=== PATIENT | female | born 2005 | race Caucasian/White ===

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

== ENCOUNTER 2025-01-06 14:22 | Outpatient (AMB) | payer BC, SELFPAY ==
--- NOTE | 2025-01-06 14:28 | MHC.OFFVIS ---
Vital Signs 01/06/25 14:29 Height 5 ft 2 in Weight 201 lb BMI 36.8 BP 108/68 Blood Pressure Location Lt brachial Position Sitting Pulse 83 Pulse Source Pulse Oximeter Pulse Oximetry (%) 96 Oxygen Delivery Method Room Air Intake Visit Reasons: Asthma Lockstitch Tunnel Elastic Operator Required: No Digital Strategy Director: Digital Strategy Director offered & declined Accompanied by: Self / Same As Patient Allergies amoxicillin Adverse Reaction (Unknown, Verified 01/06/25 14:32) Unknown Medication List - Last Reconciled 01/06/25 by Alisson Manzo LPN albuterol sulfate 90 mcg/actuation 2 puffs inhalation Q4-6H PRN 30 days clonazepam mg PO PRN escitalopram oxalate (Lexapro) 10 mg PO DAILY ipratropium-albuterol 20-100 mcg/actuation (Combivent Respimat) 1 puff inhalation QID lumateperone (Caplyta) 42 mg PO DAILY trazodone 25 mg PO DAILY HPI HPI Asthma: Details: Lizzie is pleasant 19 year old female, never smoker, with underlying asthma. She was referred by PCP for pulmonary evaluation for worsening respiratory symptoms since after COVID in 2020. She reports persistent dry cough, wheezing, dyspnea, frequent nighttime awakenings and chest tightness, requiring albuterol MDI frequently over the last few months. She does note that her symptoms tend to be worse when she is at home, reports two cats at home as well as carpeting. She reports seasonal allergies, no recent allergy testing. She reports asthma dx recently, previously with reactive airway symptoms secondary to URI. Denies prior need for intubation/hospitalizations related to respiratory distress. 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 She denies any pertinent family history. She denies second hand smoke exposure. She denies h/o recurrent respiratory symptoms. 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 Current occupational exposures/hazards: No Cognitive needs: No Hearing needs: No Vision needs: Yes Review of Systems Const Denies chills, Denies excessive sweating, Denies fever(s), Denies headache(s) and Denies night sweats Eyes Denies dry eyes, Denies irritation and Denies itchy eyes ENT Reports Normal hearing present, Denies headache(s), Denies nasal congestion, Denies nasal discharge, Denies post nasal drip and Denies sore throat Card Denies chest pain, Denies chest pain at rest, Denies chest pain with activity, Denies claudication, Denies leg edema and Denies orthopnea Resp Denies chest congestion, Denies excessive phlegm production, Denies pain on inspiration, Denies pain with cough and Denies stridor Musc Denies myalgias Neuro Reports Normal hearing present and Denies headache(s) Endo Denies excessive sweating Baljinder/Lymph Denies lymphadenopathy Aller/Immun Denies itchy eyes and Denies seasonal rhinorrhea Physical Exam Vital Signs: Last Vital Signs Pulse 83 01/06/25 14:29 BP 108/68 01/06/25 14:29 Pulse Ox 96 01/06/25 14:29 Oxygen Delivery Method Room Air 01/06/25 14:29 BMI result Body Mass Index 36.8 Const General: cooperative, healthy appearing, comfortable, no acute distress, well developed and alert Nutritional Appearance: obese Orientation/consciousness: patient oriented x3 Limitations: no limitations HEENT Head: Yes normal to inspection, Yes normocephalic and Yes atraumatic Ears: hearing grossly normal bilaterally and external ears normal Eyes General: appearance normal, both eyes and all related structures Eyelids: Yes eyelids normal Sclerae: sclerae normal EOM: EOMs intact bilaterally Neck Neck: Yes normal visual inspection and Yes no lymphadenopathy Lymphatic: no lymphadenopathy noted Chest Chest palpation & inspection: normal inspection of the chest Resp Effort & Inspection: normal respiratory effort, able to speak in complete sentences, no audible wheezes, Actively coughing Quality: dry, no stridor, not tachypneic, no tripod positioning and no use of accessory muscles Auscultation: diminished lung sounds Cardio Jugular venous distension: no JVD Rate: regular rate Rhythm: regular rhythm Skin Other: warm, dry General skin exam: no rashes or lesions noted Neuro General: patient oriented x3 Cranial nerves: Yes Normal hearing present Cognition (Neuro): normal cognition Gait exam (Neuro): Normal gait present Extrem General: Yes normal to inspection, Yes capillary refill normal, Yes no clubbing, cyanosis or edema and Yes no pedal edema Psych Appearance: grossly normal and well kempt Speech and movement: Normal speech and movement present and Clear speech present Affect: normal affect Attitude: cooperative Thought process: Normal thought process present Thought content: Normal thought content present Insight: Good insight present (Psych) Judgement: Good judgement present (Psych) Assessment & Plan Assessment & Plan (1) Asthma: Code(s): J45.909 - Unspecified asthma, uncomplicated Category: Medical (2) Environmental allergies: Code(s): Z91.09 - Other allergy status, other than to drugs and biological substances Category: Medical Plan Alexmerry's symptoms are likely related to poorly controlled asthma. Will empirically start Breo. Discussed importance of good oral hygiene to prevent thrush. Will send for PFT to assess severity of obstructive defect. Will send for RAST to assess for an allergic component. All questions were answered and patient is in agreement of plan. Will follow up in 6-8 weeks or sooner if needed. Orders: Orders Resp Allergy Profile Region I 01/06/25 Z91.09 - Other allergy status, other than to drugs and biological substances Complete Blood Count Auto Diff 01/06/25 Z91.09 - Other allergy status, other than to drugs and biological substances Immunoglobulin E 01/06/25 Z91.09 - Other allergy status, other than to drugs and biological substances PFT pulmonary function test Today J45.909 - Unspecified asthma, uncomplicated Medications: New fluticasone furoate-vilanterol 100-25 mcg/dose (Breo Ellipta) 1 inh inhalation DAILY 60 ea 3RF Coding Level of Care Code New Pt Level 4 (21220) Diagnoses Asthma J45.909 Environmental allergies Z91.09
[2025-01-06 14:29] VITALS: BP 108/68; PULSE 83; O2SAT 96; BMI 36.8
== END 2025-01-06 14:57 | disposition home or self-care (01) ==
LOC: HO.HPSW 14:23
PROVIDERS: PCP Nurse Practitioner Family; Referring Provider Nurse Practitioner Family; Visit Provider Nurse Practitioner Family
DX: J45.909 Unspecified asthma, uncomplicated (principal); Z91.09 Other allergy status, other than to drugs and biological substances
CPT/HCPCS: 99204

== ENCOUNTER → 2025-01-06 14:22 | Outpatient (BNVA) | payer BC, SELFPAY | PROVIDERS: PCP Nurse Practitioner Family; Referring Provider Nurse Practitioner Family; Visit Provider Nurse Practitioner Family ==

== ENCOUNTER 2025-01-06 15:01 | Outpatient (REF) | payer BC, SELFPAY ==
[2025-01-06 18:00] LABS: MANUAL DIFF FLAG NO
[2025-01-06 18:04] LABS: Basophils Absolute Auto 0.2 X10*3/uL (0.0-0.2); Basophils Percent Auto 1.7 % (0-2); Hemoglobin 14.2 g/dl (12.0-16.0); Imm Gran Abs Auto 0.03 X10*3/uL (0.00-0.03); Imm Gran Pct Auto 0.3 % (0.0-0.4); Lymphocytes Absolute Auto 2.5 X10*3/uL (1.2-4.9); Mean Corpuscular HGB Conc 33.8 g/dl (31.0-35.0); Mean Corpuscular Hemoglobin 29.5 pg (27.0-33.0); Mean Corpuscular Volume 87.3 fL (80.0-98.0); Mean Platelet Volume 9.3 fL (9.4-12.3); Monocytes Absolute Auto 0.8 X10*3/uL (0.1-1.2); Monocytes Percent Auto 8.7 % (2-11); Neutrophils Absolute Auto 5.1 x10*3/uL (2.0-8.3); Neutrophils Percent Auto 53.3 % (45-73); Platelet Count 444 X10*3/uL (160-400); Red Blood Count 4.81 X10*6/uL (4.20-5.50); Red Cell Distribution Width 12.6 % (11.0-16.0); White Blood Count 9.5 X10*3/uL (4.8-10.8)
[2025-01-17 16:13] LABS: Class Alternaria alternata 0; Class Aspergillus fumigatus 0; Class Bermuda Grass 0; Class Birch 0; Class Cat Dander 6; Class Cladosporium herbarum 0; Class Cockroach 0/1; Class Common Ragweed 0; Class Cottonwood 0; Class Derm. pterony 2; Class Dermatophagoides farinae 2; Class Dog Dander 4; Class Elm 0; Class Maple Box Elder 0; Class Mountain Cedar 0; Class Mouse Urine Protein 0; Class Mugwort 0; Class Oak 0; Class Penicillium crysogenum 0; Class Rough Pigweed 0; Class Sheep Sorrel 0; Class Sycamore 0; Class Timothy Grass 0; Class Walnut Tree 0; Class White Ash 0; Class White Mulberry 0; D001 IgE D pteronyssinus 1.02 kU/L; D002 - IgE D farinae 0.71 kU/L; E001 - IgE Cat Dander >100 kU/L; E072-IgE Mouse Urine <0.10 kU/L; G002 IgE Bermuda Grass <0.10 kU/L; G006 - IgE Timothy Grass <0.10 kU/L; I006-IgE Cockroach, German 0.22 kU/L; Immunoglobulin E 504 kU/L (<OR=114); M001 IgE Penicillium chrysogen <0.10 kU/L; M002 - IgE Cladosporium herbar <0.10 kU/L; M003 - IgE Aspergillus fumigat <0.10 kU/L; M006 - IgE Alternaria alternat <0.10 kU/L; T001 IgE Maple/Box Elder <0.10 kU/L; T003 IgE Common Silver Birch <0.10 kU/L; T006 - IgE Cedar, Mountain <0.10 kU/L; T007 - IgE Oak, White <0.10 kU/L; T008 IgE Elm, American <0.10 kU/L; T010 - IgE Walnut <0.10 kU/L; T011 - IgE Maple Leaf Sycamore <0.10 kU/L; T014 - IgE Cottonwood <0.10 kU/L; T015 - IgE Ash, White <0.10 kU/L; T070 - IgE White Mulberry <0.10 kU/L; W001 - IgE Ragweed, Short <0.10 kU/L; W006 - IgE Mugwort <0.10 kU/L; W014 IgE Pigweed, Common <0.10 kU/L; W018 IgE Sheep Sorrel <0.10 kU/L
== END 2025-01-06 15:02 | disposition home or self-care (01) ==
LOC: HO.WFDLDS 15:01
PROVIDERS: Visit Provider Nurse Practitioner Family
DX: Z91.09 Other allergy status, other than to drugs and biological substances (principal)
CPT/HCPCS: 36415; 82785; 85025; 86003

== ENCOUNTER 2025-01-25 07:53 | Outpatient (REF) | payer BC, SELFPAY ==
--- OUTSIDE RECORDS SUMMARY | 2025-01-25 07:58 | XMS_ITS | Clinical Summary ---
Author Organization [facility] Address [address] [place] [address] Care Team Providers Care Ball Worker Name Role Phone Elda Dai Primary Care Provider [phone] Allergies No known active allergies Medications clindamycin-benzoyl [...] EDT Growth Chart: [facility] (Girls, 2- 20 Years) Plan of Treatment Health Maintenance Due Date Last Done Comments HIV Screening 2005 1 Week WC [address] [facility] [address] [facility] [address] [facility] [address] [facility] [address] [facility] 03/04/[address] [facility] 06/14/[address] [facility] 08/31/[address] [facility] 11/29/[address] [facility] 05/28/[address] [facility] 10/01/[address] [facility] 2008 Well Child Check 2008 DTaP,Tdap,and Td Vaccines (2 - Td or Tdap) 03/19/2017 02/19/2017 HPV Vaccines (2 - 2-dose series) 08/22/2017 02/19/2017 MMR Vaccines (1 of 1 - Standard series) 08/21/2020 Varicella Vaccines (1 of 2 - 13+ 2-dose series) 08/21/2020 COVID-19 Vaccine ( - 2023-2 5 season) 2024 Hepatitis B Vaccines (1 of 3 - 19+ 3-dose series) 2024 Influenza Vaccine (Season Ended) 2025 07/24/2020, 06/28/2019, 11/01/2015 RSV Vaccine (60+ years old a nd patients) (1 - 1-dose 75+ series) 2080 Meningococcal Vaccine Aged Out 02/19/2017 No ivette seth eligible based on patient's age to complete this topic Pneumococcal Vaccine: Pediatric (0-5 Years) and At-Risk Patients (6-50 Years) Aged Out No longer eligible based on patient's age to complete this topic Insurance [employer] HMO/POS Member Subscriber Plan / Payer (Ef fective 2010-Present) Name:JustoLizzie garcia Relation to Subscriber:Child Name:VIVIEN KEMP Date of :1981 Address: [address] [place] [id number] Payer ID:[id number] (NA) Type:Not on file Address: [employer] [id number] [facility] Xtract HMO/POS Member Subscriber Plan / Payer (Ef fective 2010-Present) Name:[place] [employer] Relation to Subscriber:Child Name:VIVIEN KEMP Date of :1981 Address: [place] [address] Payer ID:[id number] (NA) Type:Not on file Address: [address] [employer] [id number] [place] [address] Care Teams Ball Worker Relationship Specialty Start Date End Date Elda Dai [address] [place] [address] PCP - General Pediatrics 05/04/20
--- OUTSIDE RECORDS SUMMARY | 2025-01-25 07:58 | XMS_ITS | Referral Summary ---
Author Organization [facility] Address [address] [place] [address] Care Team Providers Care Blasting Coal Miner Name Role Phone Elda Dai Primary Care Provider [phone] Allergies No known active allergies Medications clindamycin-benzoyl [...] 01/30/2021 4:1 1 PM EDT Growth Chart: [facility] (Girls, 2- 20 Years) Plan of Treatment Not on file Insurance CINTHYA Oh [employer] HMO/POS * Guarantor: JUSTOVIVIEN Account Type Relation to Patient Date of Phone Billing Address Personal/[place] [phone] [employer] HMO/POS Care Teams Blasting Coal Miner Relationship Specialty Start Date End Date Elda Dai [address] [place] [phone] PCP - General Pediatrics 05/04/20
== END 2025-01-25 07:54 | disposition home or self-care (01) ==
LOC: HO.HOSX 07:53
DX: Z13.89 Encounter for screening for other disorder (principal)

== ENCOUNTER 2025-02-22 12:49 | Outpatient (REF) | payer BC, SELFPAY ==
--- NOTE | 2025-02-22 12:58 | PFT_ITS ---
Spirometry [] Lung Volumes [] Diffusion Capacity [] Methacholine Challenge [] Flow Volume Loops [] MVV [] MIP/MEP(Max inspiratory pressure/Max expiratory pressure) [] 6 Minute Walk Test [] ABG [] Interpretation [] MTDD
--- OUTSIDE RECORDS SUMMARY | 2025-02-22 13:09 | XMS_ITS | Clinical Summary ---
Author Organization [facility] Address [address] [place] [address] Care Team Providers Care Hardwood Faller Name Role Phone Elda Dai Primary Care Provider [phone] Allergies No known active allergies Medications clindamycin-benzoyl [...] 4:1 1 PM EDT Growth Chart: [facility] (Girls, 2- 20 Years) Plan of Treatment Health Maintenance Due Date Last Done Comments HIV Screening 2005 1 Week WC 2005 1 Month [facility] 2005 2 Month [facility] 2005 4 Month [facility] 2005 6 Month [facility] 2005 9 Month [facility] 03/04/2006 12 Month [facility] 06/14/2006 15 Month [facility] 08/31/2006 18 Month [facility] 11/29/2006 24 Month [facility] 05/28/2007 30 Month [facility] 10/01/2007 3 to 21 Year [facility] 2008 Well Child Check 2008 DTaP,Tdap,and [...] patient's age to complete this topic Insurance [employer] HMO/POS Member Subscriber Plan / Payer (Ef fective 2010-Present) Name:OldsLizzie garcia Relation to Subscriber:Child Name:VIVIEN KEMP Date of :1981 Address: [address] [place] [id number] Payer ID:[id number] (NA) Type:Not on file Address: [employer] [id number] [facility] [employer]! HMO/POS Care Teams Hardwood Faller Relationship Specialty Start Date End Date Elda Dai [address] [place] [address] PCP - General Pediatrics 05/04/20
--- OUTSIDE RECORDS SUMMARY | 2025-02-22 13:09 | XMS_ITS | Referral Summary ---
Author Organization [facility] Address [address] [place] [address] Care Team Providers Care Automotive Service Consultant Name Role Phone Elda Dai Primary Care Provider [phone] Allergies No known active allergies Medications clindamycin-benzoyl [...] 01/30/2021 4:1 1 PM EDT Growth Chart: [facility] (Girls, 2- 20 Years) Plan of Treatment Not on file Insurance CINTHYA Oh [employer] HMO/POS * Guarantor: JUSTOVIVIEN Account Type Relation to Patient Date of Phone Billing Address Personal/[place] [address] [employer] HMO/POS Care Teams Automotive Service Consultant Relationship Specialty Start Date End Date Elda Dai [address] [place] [id number] PCP - General Pediatrics 05/04/20
[2025-02-22 13:30] VITALS: PULSE 85; O2SAT 98
== END 2025-02-22 12:50 | disposition home or self-care (01) ==
LOC: HO.RESP 12:49
PROVIDERS: PCP Nurse Practitioner Family; Visit Provider Nurse Practitioner Family
DX: J45.909 Unspecified asthma, uncomplicated (principal)
CPT/HCPCS: 94010; 94640; 94727; 94729

== ENCOUNTER → 2025-02-22 12:58 | Outpatient (BNV) | payer BC, SELFPAY | PROVIDERS: PCP Nurse Practitioner Family; Visit Provider Internal Medicine Pulmonary Disease | DX: J45.909 Unspecified asthma, uncomplicated (principal) | CPT/HCPCS: 94060; 94727; 94729 ==

== ENCOUNTER 2025-06-20 14:40 | Outpatient (REF) | payer BC, SELFPAY ==
[2025-06-20 18:37] LABS: Hematocrit 39.8 % (37.0-47.0); Hemoglobin 13.5 g/dl (12.0-16.0); Mean Corpuscular HGB Conc 33.9 g/dl (31.0-35.0); Mean Corpuscular Hemoglobin 29.3 pg (27.0-33.0); Mean Corpuscular Volume 86.5 fL (80.0-98.0); NRBC Abs Auto 0.000 X10*3/uL (0.0-0.012); NRBC Pct Auto 0.0 /100WBC (0.0-0.2); Platelet Count 383 X10*3/uL (160-400); Red Blood Count 4.60 X10*6/uL (4.20-5.50); White Blood Count 9.2 X10*3/uL (4.8-10.8)
[2025-06-20 19:02] LABS: Alanine Aminotransferase 27 U/L (0-31); Albumin Level 4.6 g/dL (3.5-5.0); Alkaline Phosphatase 56 U/L (39-117); Anion Gap 11 (12-20); Aspartate Amino Transferase 26 U/L (5-31); Blood Urea Nitrogen 10 mg/dL (9-16); Calcium 9.1 mg/dL (8.4-10.2); Carbon Dioxide 22 mmol/L (22-29); Chloride 112 mmol/L (96-108); Cholesterol 207 mg/dL (<200); Estimated Glomerular Filt Rate > 60; HDL Cholesterol 43 mg/dL (>40); Iron 49 mcg/dL (30-160); Percent Iron Saturation 15 % (15-50); Potassium 3.8 mmol/L (3.3-5.1); Sodium 141 mmol/L (135-145); Total Iron Binding Capacity 326 mcg/dL (228-428); Total Protein 7.3 g/dL (6.5-8.0); Triglycerides 263 mg/dL (<150); Unsaturated Iron Binding 277 ug/dL
[2025-06-20 19:10] LABS: Ferritin 34 ng/mL (10-122)
== END 2025-06-20 14:41 | disposition home or self-care (01) ==
LOC: HO.WFDLDS 14:40
PROVIDERS: Nurse Practitioner Family; PCP Nurse Practitioner Family; Visit Provider Nurse Practitioner Family
DX: J45.20 Mild intermittent asthma, uncomplicated (principal); Z91.09 Other allergy status, other than to drugs and biological substances; E66.01 Morbid (severe) obesity due to excess calories; R79.89 Other specified abnormal findings of blood chemistry; R53.83 Other fatigue; E78.9 Disorder of lipoprotein metabolism, unspecified; Z84.89 Family history of other specified conditions; Z68.41 Body mass index [BMI] 40.0-44.9, adult
CPT/HCPCS: 36415; 80053; 80061; 82248; 82728; 82785; 83540; 84443; 85027; 85652; 86140; 96160

== ENCOUNTER 2025-06-20 14:40 | Outpatient (AMB) | payer BC, SELFPAY ==
--- NOTE | 2025-06-20 14:43 | A.OFFPC_ITS ---
Vital Signs 06/20/25 14:46 Height 5 ft 2 in Weight 220 lb BMI 40.2 BP 112/69 Blood Pressure Location Lt brachial Position Sitting Respiration 12 Pulse 83 Pulse Source Pulse Oximeter Temp 97.5 F Temp Source Oral Pulse Oximetry (%) 98 Oxygen Delivery Method Room Air Intake Visit Reasons: 6 mo 30 min asthma, HLD fu Intake Note: Follow up on hdl Manager Retention Required: No Allergies amoxicillin Adverse Reaction (Unknown, Verified 06/20/25 14:59) Unknown Medication List - Last Reconciled 06/20/25 by Yahaira Maria, [facility] albuterol sulfate 90 mcg/actuation 2 puffs inhalation Q4-6H PRN 30 days clonazepam mg PO PRN escitalopram oxalate (Lexapro) 10 mg PO DAILY lumateperone (Caplyta) 42 mg PO DAILY trazodone 25 mg PO DAILY Tobacco use date assessed: 06/20/25 Dental Screening Dental Screen Date: 06/20/25 Did you have a dental visit in the last 12 months?: Yes Did you have a dental problem in the last 6 months where you did not have access to dental care?: No Was dental information given to patient?: Patient has dentist HPI HPI Comments History of Present Illness Details 20 year-old with bipolar 1, anxiety, sea omar allergies, constipation, acne, migraine without aura, mild intermittent asthma, boderline cholesterol Status post ear tubes bilat Social History - 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 - , [place] Family hx: Dad - cirrhosis d/t etoh, DM, HLD, bipolar, ( 02/2025) pUncle OCD Mom HLD alive and well mAunt bipolar mAunt schizophrenic Older brother bipolar good clothes model Psychiatry Counselor [facility]EMAN APPRENTICE [facility] Nutrition Health Maintenance Pap - n/a Flu admin today Tdap UTD History of Present Illness - The patient is a 20-year-old female pr esenting with concerns surrounding weight gain and related symptoms. - Notable weight gain of 2-4 pounds week ly, linked to emotional and stress- related eating post-father's February 2025. - Reports significant fatigue and stiffn ess, typically maintains an active l ifestyle. - Menstrual irregularities noted, crampi ng and fatigue, with IUD in place. - Extremity swelling observed; query reg arding thyroid issues due to family history. - No significant illnesses since February; vi gilant against viral exposure in her teaching environment. - Current medications include albuterol for asthma; great improvement in sx since limiting exposure to her house cats. - cont w/ outside presciber for psych denies si/hi - stopped going to detailer furniture Review of Systems - General: Reports weight gain, fatigue, and stiffness. - Respiratory: Denies recent respiratory infections or exacerbations of asthma. - Cardiovascular: Denies chest pain or p alpitations. - Neurological: Denies headaches or dizz iness. - Gastrointestinal: Reports increased ap petite potentially related to stress. - Musculoskeletal: Reports stiffness and fatigue. - Endocrine: Denies current thyroid dysf unction; family history of thyroid issues present. - Dermatological: Denies rashes or lake es in skin texture. - Hematological: Reports no personal his tory of anemia or bleeding disorders. - Psychiatric: Reports emotional eating related to stress. - Reproductive: Reports irregular and he gael periods, severe mood swings pre- menstrually. - Allergies: Managed pet allergies. Physical Exam General: Well developed, well nourished, in no acute distress. Appears stated age. Head: Normocephalic, atraumatic. Eyes: Pupils are equal, round and reactive to light and accommodation. Conjunctivae are clear. Vision grossly normal. Neck: thyroid nontender Lungs: Clear to auscultation bilaterally. No rales, rhonchi or wheeze noted. Good air flow in all potter. Heart: Regular rate and rhythm. No murmurs, click, rubs or gallops are noted. Musculoskeletal: Joints are nontender, without redness, or effusions. Trace edema BLE Pulses: Peripheral pulses are equal and palpable bilaterally. Extremities: No clubbing, cyanosis noted. Indentations from socks observed, indicating some swelling. Psych: Mood and affect appropriate, but patient reports increased stress and emotional eating. Results Pending Discussion Notes We discussed the patient's concerns regarding recent weight gain and associated symptoms including emotional eating due to stress from her father's passing. I explained the potential impact of these factors on her current health issues and the importance of monitoring her thyroid function due to family history. We discussed restarting nutritional therapy for dietary management and accountability. I advised the patient to consider further evaluation by her LONGITUDINAL FLOAT OPERATOR for menstrual irregularities. We agreed on a comprehensive evaluation including thyroid function testing and inflammatory markers to better assess underlying conditions. I encouraged lifestyle modifications while managing her asthma and addressed her concerns about swelling with additional testing. All potential risks and benefits were discussed, and consent was obtained for proceeding with labs. Patient was given time to ask questions. All questions were answered to their satisfaction. Assessment and Plan - Maintain use of albuterol as needed. - Follow current allergy management plan s. - Follow up with nutritional therapy as discussed. - Call LONGITUDINAL FLOAT OPERATOR about menstrual issues. - Go for the lab tests today - Await lab results on the patient brian l. - RTO 6 mo for CPE sooner as needed. Consent Patient was informed and verbally consented to the use of an ambient scribe for clinic note documentation during this visit. Total time spent caring for the patient today was 40 minutes. This includes time spent before the visit reviewing the chart, time spent during the visit, and time spent after the visit on documentation, reviewing laboratory results, diagnostic imaging, medications, performing a medically necessary evaluation, counseling on diagnoses, care coordination, ordering appropriate tests, ordering appropriate medications, review of tests performed by other providers, reporting test results with the patient, communication with other healthcare providers. 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 Current occupational exposures/hazards: No Cognitive needs: No Hearing needs: No Vision needs: Yes Questionnaire Thrive Questionnaire Date Thrive assessed: 10/26/24 I am a: Patient What is your living situation today?: I have a steady place to live Within the past 12 months, did the food you bought not last and you didn't have the money to get more?: Never true Within the past 12 months, did you worry whether your food would run out before you got money to buy more?: Never true Do you have trouble paying for medicines?: No Do you have trouble getting transportation to medical appointments?: No Do you have trouble paying your heating and electricity bill?: No Do you have trouble taking care of your child, family member or friend?: No Do you have trouble with day-to-day activities such as bathing, preparing meals, shopping, managing finances, etc.?: No Are you currently unemployed and looking for a job?: No Are you interested in more education?: No Please select the resources that you would like help with: None Currently or been in a relationship where the following occur: No concerns reported THRIVE Score: 0 VLADIMIR-7 AMB Questionnaire VLADIMIR-7 Date VLADIMIR - 7 assessed: 12/15/24 Source: Developed by Drs. Yimi Stevens, Arianne Guthrie, Jeffery Prater and colleagues, with an educational thierry from [employer] ACT Questionnaire In the past 4 weeks, how much of the time did your asthma keep you from getting as much done at work, school or at home?: None of the time During the past 4 weeks, how often have you had shortness of breath?: Not at all During the past 4 weeks, how often did your asthma symptoms wake you up at night or earlier than usual in the morning?: Not at all During the past 4 weeks, how often have you had to use your rescue inhaler or nebulizer medication?: Not at all How would you rate your asthma control during the past 4 weeks?: Completely controlled ACT Interpretation: Negative Score: 25 Physical exam (Primary Care) Vital Signs: Last Vital Signs Temp 97.5 F 06/20/25 14:46 Pulse 83 06/20/25 14:46 Resp 12 06/20/25 14:46 BP 112/69 06/20/25 14:46 Pulse Ox 98 06/20/25 14:46 Oxygen Delivery Method Room Air 06/20/25 14:46 BMI result Body Mass Index 40.2 BMI Assessment/Plan discussion: High BMI High, discussed plan: lifestyle Tobacco/Smoking Status: Tobacco use Status Tobacco use date assessed 06/20/25 06/20/25 14:48 Patient Tobacco Use Status Never used Tobacco 06/20/25 14:48 e-Cigarette/Vaping Use Never Used 06/20/25 14:48 Thrive Assessment: Date of Thrive Assessment Date Thrive assessed 10/26/24 06/20/25 14:48 Currently or been in a relationship where the following occur: No concerns reported Coding Level of Care Code Est Pt Level 5 (40564) Complex EM visit Add On G2211 Diagnoses Patient's father is Z84.89 Obesity, morbid, BMI 40.0-49.9 E66.01 Elevated LFTs R79.89 Fatigue, unspecified type R53.83 Fatigue type: unspecified Environmental allergies Z91.09 Borderline high cholesterol E78.9 Mild intermittent asthma in adult without complication J45.20 Additional Codes Asthma Control Questionnaire - ACT Interpretation: Negative ([id number]) Assessment & Plan Assessment & Plan (1) Patient's father is : Onset Date: ~02/2025 Comment: dialysis complications; etoh/cirrhosis Code(s): Z84.89 - Family history of other specified conditions Category: Medical (2) Obesity, morbid, BMI 40.0-49.9: Code(s): E66.01 - Morbid (severe) obesity due to excess calories Category: Medical (3) Elevated LFTs: Comment: noted on 11/2023 labs. Repeat labs, Consider US. Code(s): R79.89 - Other specified abnormal findings of blood chemistry Category: Medical (4) Fatigue: Code(s): R53.83 - Other fatigue Category: Medical Qualifiers: Fatigue type: unspecified Qualified Code(s): R53.83 - Other fatigue (5) Environmental allergies: Code(s): Z91.09 - Other allergy status, other than to drugs and biological substances Category: Medical (6) Borderline high cholesterol: Code(s): E78.9 - Disorder of lipoprotein metabolism, unspecified Category: Medical (7) Mild intermittent asthma in adult without complication: Code(s): J45.20 - Mild intermittent asthma, uncomplicated Category: Medical Plan . Orders: Orders TSH reflex Free T4 Today E66.01 - Morbid (severe) obesity due to excess calories, R79.89 - Other specified abnormal findings of blood chemistry Complete Blood Count no Diff Today R53.83 - Other fatigue IRON PROFILE Today R53.83 - Other fatigue C Reactive Protein Today E66.01 - Morbid (severe) obesity due to excess calories, R79.89 - Other specified abnormal findings of blood chemistry Erythrocyte Sedimentation Rate Today E66.01 - Morbid (severe) obesity due to excess calories, R79.89 - Other specified abnormal findings of blood chemistry Comprehensive Met. Panel Today E66.01 - Morbid (severe) obesity due to excess calories, R79.89 - Other specified abnormal findings of blood chemistry Ferritin Today R53.83 - Other fatigue
[2025-06-20 14:46] VITALS: BP 112/69; PULSE 83; RESP 12; TEMP 36.4; O2SAT 98; BMI 40.2
--- OUTSIDE RECORDS SUMMARY | 2025-06-20 17:10 | XMS_ITS | Clinical Summary ---
Author Organization [facility] Address [address] [place] [address] Care Team Providers Care Sand Filler Name Role Phone Elda Dai Primary Care Provider [phone] Allergies No known active allergies Medications clindamycin-benzoyl [...] Mass Index 27.8 01/30/2021 4:11 PM EDT Plan of Treatment Health Maintenance Due Date Last Done Comments HIV Screening 2005 1 Week [facility] 2005 1 Month [facility] 2005 2 Month [facility] 2005 4 Month [facility] 2005 6 Month [facility] 2005 9 Month [facility] 03/04/2006 MMR Vaccines (1 of 1 - Standard series) 2006 12 Month [facility] 06/14/2006 15 Month [facility] 08/31/2006 18 Month [facility] 11/29/2006 24 Month [facility] 05/28/2007 30 Month [facility] 10/01/2007 3 to 21 Year [facility] 2008 Well Child Check 2008 DTaP,Tdap,and Td Vaccines (2 - Td or Tdap) 03/19/2017 02/19/2017 HPV Vaccines (2 - 2-dose series) 08/22/2017 02/19/2017 Varicella Vaccines (1 of 2 - 13+ 2-dose series) 2018 Hepatitis B Vaccines (1 of 3 - 19+ 3-dose series) 2024 COVID-19 Vaccine (1 - 2023-2 5 season) 2025 Influenza Vaccine (#1) 2025 , 06/28/2019, 11/01/2015 RSV Vaccine (60+ years old a nd patients) (1 - 1-dose 75+ series) 2080 Meningococcal Vaccine Aged Out 02/19/2017 No ivette seth eligible based on patient's age to complete this topic Pneumococcal Vaccine: Pediatric (0-5 Years) and At-Risk Patients (6-50 Years) Aged Out No longer eligible based on patient's age to complete this topic Insurance [employer] HMO/POS [employer] HMO/POS Care Teams Sand Filler Relationship Specialty Start Date End Date Elda Dai [address] [place] [id number] PCP - General Pediatrics 05/04/20
== END 2025-06-20 15:19 | disposition home or self-care (01) ==
LOC: HO.HMCFM 14:41
PROVIDERS: PCP Nurse Practitioner Family; Visit Provider Nurse Practitioner Family
DX: R53.83 Other fatigue (principal); E66.01 Morbid (severe) obesity due to excess calories; Z68.41 Body mass index [BMI] 40.0-44.9, adult; Z84.89 Family history of other specified conditions; R79.89 Other specified abnormal findings of blood chemistry; Z91.09 Other allergy status, other than to drugs and biological substances; E78.9 Disorder of lipoprotein metabolism, unspecified; J45.20 Mild intermittent asthma, uncomplicated

== ENCOUNTER 2025-09-04 15:27 | Outpatient (AMB) | payer BC, SELFPAY ==
--- NOTE | 2025-09-04 15:32 | A.OFFPC_ITS ---
Intake Visit Reasons: migraine Intake Note: Telehealth for migraine Instrument Calibrator Required: No Allergies amoxicillin Adverse Reaction (Unknown, Verified 09/04/25 16:51) Unknown Medication List - Last Reconciled 09/04/25 by MARAL SilvaP- albuterol sulfate 90 mcg/actuation 2 puffs inhalation Q4-6H PRN 30 days clonazepam mg PO PRN escitalopram oxalate (Lexapro) 10 mg PO DAILY lumateperone (Caplyta) 42 mg PO DAILY trazodone 25 mg PO DAILY Tobacco use date assessed: 09/04/25 Dental Screening Dental Screen Date: 09/04/25 Did you have a dental visit in the last 12 months?: Yes Did you have a dental problem in the last 6 months where you did not have access to dental care?: No Was dental information given to patient?: Patient has dentist HPI HPI Comments History of Present Illness Details 20 year-old with bipolar 1, anxiety, sea [place] allergies, constipation, acne, migraine without aura, mild intermittent asthma, boderline cholesterol Status post ear tubes bilat Social History - 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 Chronic migraine: - The patient has a history of chronic m igraines, which are typically triggered by severe stress. - The migraines were more frequent durin g the COVID pandemic but now occur approximately three times a year. - The patient missed one day of work on 08/30/25 due to a recent migraine episode. - This episode was precipitated by acute stress related to the patient's late father's estate. - The patient manages migraines with com plete darkness and an ice pack and did not require other treatment for the recent episode. - There is a family history of migraines , affecting the patient's mother and brother. Asthma: - The patient requested a refill for an inhaler, which is nearly empty with about 20 doses remaining. Acute stress reaction and grief: - The patient is experiencing significan t stress from grieving the loss of the patient's father's belongings, which were auctioned from storage units. - The patient reports this led to a com plete meltdown with emotional distress and physical pain from grieving. - Additional life stressors include curr ently being in the process of buying a house. - The patient reports having a good supp ort system, including a weekly therapist and support at work. Review of Systems - Neurological: Reports headaches for [facility] past week, including one severe migraine. - Psychiatric: Reports acute stress, a f eeling of a complete meltdown, and grief leading to physical pain. - Cardiovascular: Reports an increased h eart rate associated with grief. - Constitutional: Reports overall doing well despite a recent history of being sick three times between June and July, but has not been sick in August. Physical Exam Limited via video Sitting at table Awake alert, engaging Speaking in full sentences Assessment and Plan 1. Chronic Migraine - This is a known condition for the val ent, exacerbated by stress. - The recent episode was triggered by si gnificant emotional distress. - A doctor's note for a work absence on 08/30/25 was provided and uploaded to [facility]. - The patient has returned to normal wor k hours and does not require intermittent leave. - Will continue to manage with home care , including rest in a dark room and an ice pack. 2. Asthma - The patient requested a refill for an inhaler, indicating it is nearly depleted. - A prescription was renewed and electro nically sent to the patient's preferred pharmacy, [facility] at [address] [place] [address]. 3. Acute Stress Reaction and Grief - The patient is experiencing significan t stress from recent life events, including the loss of the patient's late father's belongings and the process of buying a house. - Offered support, and noted the patient has a strong existing support system, including a weekly therapist. - The patient was advised to reach out i f additional support is needed. Patient was given time to ask questions. All questions were answered to their satisfaction. Telehealth Attestation This visit was conducted via a synchronous audio-video telehealth platform, and the patient was seen and heard clearly. The patient has been explained that this is an interactive (audio/video) telehealth encounter and what that consists of. The patient understands and w ishes to proceed. Spotigo platform was used. Total time spent caring for the patient today was 15 minutes. This includes time spent before the visit reviewing the chart, time spent during the visit, and time spent after the visit on documentation, reviewing laboratory results, diagnostic imaging, medications, performing a medically necessary evaluation, counseling on diagnoses, care coordination, ordering appropriate tests, ordering appropriate medications, review of tests performed by other providers, reporting test results with the patient, communication with other healthcare providers. [facility] Medical History (Updated 06/20/25 @ 16:[address] 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 Yimi Stevens, Arianne Guthrie, Jeffery Prater and colleagues, with an educational thierry from [employer]. Physical exam (Primary Care) Tobacco/Smoking Status: Tobacco use Status Tobacco use date assessed 09/04/25 09/04/25 15:35 Patient Tobacco Use Status Never used Tobacco 09/04/25 15:35 e-Cigarette/Vaping Use Never Used 09/04/25 15:35 Thrive Assessment: Date of Thrive Assessment Date Thrive assessed 10/26/24 09/04/25 15:35 Telehealth Telehealth Telehealth Platform: Spotigo Location of provider rendering services: practice address Location of patient: address on file Patient Identification confirmed using: Name, : Yes Telehealth method: video Patient verbally consented to treatment: Yes Patient verbally consented to billing insurance company: Yes Patient informed of any privacy concerns related to visit: Yes Minutes spent on Phone/Video with Pt.: 8 Coding Level of Care Code Tele Est Pt Level 2 (26741) Complex visit Add On G2211 Diagnoses Migraine without aura, not intractable, without status migrainosus G43.009 Mild intermittent asthma in adult without complication J45.20 Assessment & Plan Assessment & Plan (1) Migraine without aura, not intractable, without status migrainosus: Comment: Controlled without any medications at this time Code(s): G43.009 - Migraine without aura, not intractable, without status migrainosus Category: Medical (2) Mild intermittent asthma in adult without complication: Code(s): J45.20 - Mild intermittent asthma, uncomplicated Category: Medical Plan . Medications: Refilled albuterol sulfate 90 mcg/actuation 2 puffs inhalation Q4-6H PRN 8.5 grams 0RF shortness of breath or wheezing 30 days
--- OUTSIDE RECORDS SUMMARY | 2025-09-04 20:03 | XMS_ITS | Clinical Summary ---
Author Organization [facility] Address [address] [place] [address] Care Team Providers Care Professor Of Medicine Name Role Phone Elda Dai Primary Care Provider [phone] Allergies No known active allergies Medications clindamycin-benzoyl [...] Done Comments HIV Screening 2005 1 Week [facility] 2005 1 Month [facility] 2005 2 Month [facility] 2005 4 Month [facility] 2005 6 Month [facility] 2005 9 Month [facility] 03/04/2006 MMR Vaccines (1 of 1 - Standard series) 2006 12 Month [facility] 06/14/2006 15 Month [facility] 08/31/2006 18 Month [facility] 11/29/2006 24 Month [facility] 05/28/2007 30 Month [facility] 10/01/2007 3 to 21 Year [facility] 2008 Well Child Check 2008 DTaP,Tdap,and Td Vaccines (2 - Td or Tdap) 03/19/2017 02/19/2017 HPV Vaccines (2 - 2-dose series) 08/22/2017 02/19/2017 Varicella Vaccines (1 of 2 - 13+ 2-dose series) 2018 Hepatitis B Vaccines (1 of 3 - 19+ 3-dose series) 2024 Influenza Vaccine (#1) 2025 , 06/28/2019, 11/01/2015 COVID-19 Vaccine (1 - 2024-2 6 season) 2025 Meningococcal Vaccine Aged Out 02/19/2017 No ivette seth eligible based on patient's age to complete this topic Pneumococcal Vaccine: Pediatric (0-5 Years) and At-Risk Patients (6-50 Years) Aged Out No longer eligible based on patient's age to complete this topic Insurance Member Subscriber Plan / Payer (Ef fective 2010-Present) Name:Lizzie Kemp Relation to Subscriber:Child Name:VIVIEN KEMP Date of :1981 Address: [address] [place] [address] Payer ID:[id number] (NAIC) Type:Not on file Address: [place] [id number] [facility] [employer] HMO/POS Care Teams Professor Of Medicine Relationship Specialty Start Date End Date Elda Dai [address] [place] [id number] PCP - General Pediatrics 05/04/20
== END 2025-09-04 16:59 | disposition home or self-care (01) ==
LOC: HO.HMCFM 15:27
PROVIDERS: PCP Nurse Practitioner Family; Visit Provider Nurse Practitioner Family
DX: G43.009 Migraine without aura, not intractable, without status migrainosus (principal); J45.20 Mild intermittent asthma, uncomplicated